=== PATIENT | male | born 1985 | race Caucasian/White ===

== ENCOUNTER 2017-09-21 16:33 | Emergency (ER) | payer SELFPAY ==
--- NOTE | 2017-09-21 17:10 | EDPHYS ---
Physician Documentation [facility] Name: Adi Raymond II Age: 32 yrs Sex: Male : 1985 Arrival Date: 09/21/2017 Time: 16:38 Bed 17 Private MD: None, None ED Physician Nolan Franco HPI: 09/21 17:01 This 32 yrs old Male presents to ER via Ambulatory with complaints of gs Numbness Of Hand. 17:01 The patient or guardian reports PARESTHESIA HANDS FOR MANY YEARS USUALLY WHEN WAKES UP gs IN AM, LAST WEEK NOTICED PROGRESSIVE NUMBNESS RIGHT MIDDLE FINGER, NEGATIVE FOR NECK PAIN. The complaints affect the left hand diffusely, right hand diffusely. Onset: The symptoms/episode began/occurred 1 week(s) ago. Modifying factors: The symptoms are alleviated by nothing, the symptoms are aggravated by nothing. Associated signs and symptoms: Pertinent positives: decreased sensation distally, tingling distally. Severity of symptoms: At their worst the symptoms were moderate, in the emergency department the symptoms are unchanged. The patient has experienced similar episodes in the past, multiple times. Historical: - Allergies: 16:48 No Known Allergies; ss - Home Meds: 16:48 None [Active]; ss - PMHx: 16:48 Hypertension; chronic back pain; ss - PSHx: 16:48 Adenoids; ss - Immunization history:: Adult Immunizations up to date. - Social history:: Smoking status: Patient/guardian denies using tobacco. - Ebola Screening: : Patient denies exposure to infectious person Patient denies travel to an Ebola-affected area in the 21 days before illness onset. ROS: 17:01 All other systems are negative. gs Exam: 17:01 Neck: Trachea midline, no thyromegaly or masses palpated, and no cervical gs lymphadenopathy. Supple, full range of motion without nuchal rigidity, or vertebral point tenderness. No Meningismus. Chest/axilla: Normal chest wall appearance and motion. Nontender with no deformity. No lesions are appreciated. Cardiovascular: Regular rate and rhythm with a normal S1 and S2. No gallops, murmurs, or rubs. Normal PMI, no JVD. No pulse deficits. Respiratory: Lungs have equal breath sounds bilaterally, clear to auscultation and percussion. No rales, rhonchi or wheezes noted. No increased work of breathing, no retractions or nasal flaring. Back: No spinal tenderness. No costovertebral tenderness. Full range of motion. Skin: Warm, dry with normal turgor. Normal color with no rashes, no lesions, and no evidence of cellulitis. 17:01 Constitutional: The patient appears alert, awake. 17:01 Musculoskeletal/extremity: ROM: intact in all extremities, Pulses: are normal with no appreciated deficits, the palmar aspect of distal phalanx of right middle finger, palmar aspect of distal phalanx of right index finger and palmar aspect of distal phalanx of right thumb Tingling of extremity. decreased sensation, + TINNELS ON RIGHT. 17:01 Neuro: Cranial nerves: grossly normal, Cerebellar function: is grossly normal, Motor: is normal, strength is normal, Sensation: pin prick is decreased in the palmar aspect of distal phalanx of right middle finger and palmar aspect of distal phalanx of right index finger, Deep tendon reflexes are normal. Vital Signs: 16:48 BP 162 / 107; Pulse 100; Resp 15; Temp 97.7(TE); Pulse Ox 96% on R/A; Weight 124.74 kg; ss Height 5 ft. 8 in. (172.72 cm); Pain 0/10; 17:38 BP 156 / 99; Pulse 98; Resp 17; Pulse Ox 99% on R/A; kr2 16:48 Body Mass Index 41.81 (124.74 kg, 172.72 cm) ss MDM: 17:01 Patient medically screened. gs 17:01 Differential diagnosis: CERVICAL RADICULOPATHY, CARPEL TUNNEL, NEUROPATHY. Data gs reviewed: vital signs, nurses notes. Response to treatment: There is no appreciated change of the patient's symptoms at this time, and as a result, I will discharge patient. 09/21 17:10 Order name: Wrist Splint: VELCRO RIGHT; Complete Time: 17:35 gs Administered Medications: No medications were administered Disposition: 09/21/17 17:09 Discharged to Home. Impression: Carpal tunnel syndrome, right upper limb, Paresthesia of skin. - Condition is Stable. - Discharge Instructions: Carpal Tunnel Syndrome, Wrist Splint, Paresthesia, [id number]. - Medication Reconciliation Form, Thank You Letter, Antibiotic Education, Prescription Opioid Use form. - Follow up: Morgan Ramos MD; When: 2 - 3 days; Reason: Re-evaluation by your physician. Signatures: Kylie Baker RN RN ss Nolan Franco MD MD Sima Bedolla RN RN kr2 Corrections: (The following items were deleted from the chart) 17:39 17:09 09/21/2017 17:09 Discharged to Home. Impression: Carpal tunnel syndrome, right kr2 upper limb; Paresthesia of skin. Condition is Stable. Forms are Medication Reconciliation Form, Thank You Letter, Antibiotic Education, Prescription Opioid Use. Follow up: Dr. Morgan Ramos; When: 2 - 3 days; Reason: Re-evaluation by your physician. gs
--- NOTE | 2017-09-21 17:10 | ER ---
Nurse's Notes [facility] Name: Adi Raymond II Age: 32 yrs Sex: Male : 1985 Arrival Date: 09/21/2017 Time: 16:38 Bed 17 Private MD: None, None Diagnosis: Carpal tunnel syndrome, right upper limb;Paresthesia of skin Presentation: 09/21 16:45 Presenting complaint: Patient states: intermittent numbness x "a few years" to ss bilateral hands, has gotten progressively worse throughout the last month. Transition of care: patient was not received from another setting of care. Onset of symptoms is unknown. Risk Assessment: Do you want to hurt yourself or someone else? Patient reports no desire to harm self or others. Initial Sepsis Screen: Does the patient meet any 2 criteria? No. Patient's initial sepsis screen is negative. Does the patient have a suspected source of infection? No. Patient's initial sepsis screen is negative. Note Pt states, "I had to come with my sister to the ER to bring my nephew to be seen and I figured while I was here i'd get it checked out.". Care prior to arrival: None. 16:45 Method Of Arrival: Ambulatory ss 16:45 Acuity: [id number] 5 ss Historical: - Allergies: 16:48 No Known Allergies; ss - Home Meds: 16:48 None [Active]; ss - PMHx: 16:48 Hypertension; chronic back pain; ss - PSHx: 16:48 Adenoids; ss - Immunization history:: Adult Immunizations up to date. - Social history:: Smoking status: Patient/guardian denies using tobacco. - Ebola Screening: : Patient denies exposure to infectious person Patient denies travel to an Ebola-affected area in the 21 days before illness onset. Screenin:37 Abuse screen: Denies threats or abuse. Denies injuries from another. Nutritional kr2 screening: No deficits noted. Tuberculosis screening: No symptoms or risk factors identified. Fall Risk None identified. Assessment: 16:49 Reassessment: Pt states, "I know my blood pressure has been high. I just haven't seen a doctor since I got out of [facility].". 17:36 General: Appears in no apparent distress. comfortable, well developed, well nourished, kr2 Behavior is calm, cooperative, appropriate for age. Pain: Denies pain. Neuro: Level of Consciousness is awake, alert, obeys commands, Oriented to person, place, time, situation, Appropriate for age. Neuro: Reports paresthesias in left hand and right hand and palmar aspect of distal phalanx of right thumb and palmar aspect of distal phalanx of right index finger and palmar aspect of distal phalanx of right middle finger. Cardiovascular: Capillary refill < 3 seconds in bilateral fingers Patient's skin is warm and dry. Respiratory: Airway is patent Respiratory effort is even, unlabored, Respiratory pattern is regular, symmetrical. GI: Abdomen is round non-distended. Derm: Skin is intact, is healthy with good turgor, Skin is pink, warm \\T\\ dry. Musculoskeletal: Circulation, motion, and sensation intact. Vital Signs: 16:48 BP 162 / 107; Pulse 100; Resp 15; Temp 97.7(TE); Pulse Ox 96% on R/A; Weight 124.74 kg; ss Height 5 ft. 8 in. (172.72 cm); Pain 0/10; 17:38 BP 156 / 99; Pulse 98; Resp 17; Pulse Ox 99% on R/A; kr2 16:48 Body Mass Index 41.81 (124.74 kg, 172.72 cm) ED Course: 16:38 Patient arrived in ED. sb2 16:38 None, None is Private Physician. sb2 16:40 Nolan Franco MD is Attending Physician. gs 16:47 Triage completed. ss 16:48 Arm band placed on left wrist. ss 16:52 Sima Bedolla, SOFY is Primary Nurse. kr2 17:09 Morgan Ramos MD is Referral Physician. gs 17:37 Patient has correct armband on for positive identification. Bed in low position. Call kr2 light in reach. Side rails up X 1. Pulse ox on. NIBP on. Door closed. Warm blanket given. Head of bed elevated. 17:38 No provider procedures requiring assistance completed. Patient did not have IV access kr2 during this emergency room visit. Administered Medications: No medications were administered Outcome: 17:09 Discharge ordered by . gs 17:38 Discharged to home ambulatory. kr2 17:38 Condition: good 17:38 Discharge instructions given to patient, Instructed on discharge instructions, follow up and referral plans. splint care Demonstrated understanding of instructions, follow-up care, splint care. 17:39 Patient left the ED. kr2 Signatures: Kylie Baker RN RN ss Nolan rFanco MD MD gs Reaves, Karey, RN RN kr2 Arina Alvarenga2
[2017-09-21 18:20] VITALS: TEMP 97.7
[2017-09-21 18:22] VITALS: BP 156/99; O2SAT 99
== END 2017-09-21 17:39 | disposition home or self-care (01) ==
LOC: ER 16:33
DX: G56.01 Carpal tunnel syndrome, right upper limb (principal); I10 Essential (primary) hypertension
CPT/HCPCS: 99283

== ENCOUNTER 2019-03-16 10:15 | Inpatient (IN) | payer SELFPAY ==
[2019-03-16] MEDS ORDERED: ONDANSETRON 4 MG/2 ML VIAL ONE ×3 (10:24→15:18)
[2019-03-16] MEDS ORDERED: MORPHINE 4 MG/ML SYR ONE (10:24)
[2019-03-16] MEDS ORDERED: NA CHLORIDE 0.9% 1,000 ML ONE (10:24)
--- NOTE | 2019-03-16 11:03 | RAD REPORT ---
EXAM DESCRIPTION: CT - Stone Protocol - 03/16/2019 10:37 am CLINICAL HISTORY: Abdominal pain. COMPARISON: None. TECHNIQUE: Computed axial tomography of the abdomen pelvis was obtained without oral or IV contrast. Lack of IV and oral contrast limits evaluation of solid organs, bowel, and vessels. Coronal reformat [place] images were obtained and reviewed. All CT scans are performed using dose optimization technique as appropriate and may include automated exposure control or mA/KV adjustment according to patient size. FINDINGS: A renal calculus is not seen. An ureteral calculus is not noted. A bladder calculus is not present. Multiple gallstones are present. The gallbladder is distended. Marked stranding is present within the adjacent fat. Stranding involves the duodenum The liver, spleen, pancreas and adrenals appear grossly normal There is no evidence of diverticulitis. The appendix appears normal Small inguinal hernias contain fat. Trace amount of free fluid IMPRESSION: Cholelithiasis with marked gallbladder wall thickening and gallbladder distention дмитрий tible with acute cholecystitis
[2019-03-16] MEDS ORDERED: METRONIDAZOLE 500mg IVPB 500 MG/100 ML BAG IV ONE (11:08)
[2019-03-16] MEDS ORDERED: CEFTRIAXONE/SWI 1gm 1 GM/10 ML SYR ONE (11:08)
[2019-03-16 11:10] LABS: ALT/SGPT 140 U/L (12-78); AST/SGOT 214 U/L (15-37); Albumin 3.5 g/dL (3.4-5.0); Alkaline Phosphatase 170 U/L (45-117); BUN Blood Urea Nitrogen 14 mg/dL (7-18); Bicarbonate 30 mmol/L (21-32); Bilirubin Direct 0.6 mg/dL (0-0.2); Bilirubin Total 1.3 mg/dL (0.2-1.0); Glucose Level 128 mg/dL (74-106); Lipase 107 U/L (73-393); Potassium 3.7 mmol/L (3.5-5.1); Protein, Total 7.7 g/dL (6.4-8.2); Sodium Level 137 mmol/L (136-145)
[2019-03-16] MEDS ORDERED: HYDROMORPHONE HCL 1 MG/ML INJ ONE (11:21)
[2019-03-16 11:30] LABS: Basophils % 0.3 % (0-1.3); Hematocrit 40.9 % (39.6-49.0); Lymphocytes % 7.6 % (15.3-44.8); MPV 8.2 fL (7.6-11.3); RBC Red Blood Cell Count 4.83 M/uL (4.33-5.43)
--- NOTE | 2019-03-16 11:33 | RAD REPORT ---
EXAM DESCRIPTION: US - Abdomen Exam Limited - 03/16/2019 10:51 am CLINICAL HISTORY: Abdominal pain. COMPARISON: None. FINDINGS: The gallbladder wall is markedly thickened. Multiple gallstones. The gallbladder is disten ded. The biliary tree is normal caliber. IMPRESSION: Cholelithiasis with markedly thickened gallbladder wall and gallbladder distention дмитрий tible with acute cholecystitis
--- NOTE | 2019-03-16 11:48 | RAD REPORT ---
EXAM DESCRIPTION: US - Scrotum Testicles - 03/16/2019 10:59 am CLINICAL HISTORY: Testicular pain COMPARISON: None FINDINGS: Right testicle measures 4.9 x 2.4 x 3.2 centimeters. Echotexture is homogeneous. Normal bl ood flow Left testicle measures 4.5 x 2.4 x 3.2 centimeters. Echotexture is homogeneous. Normal blood flow The epididymides are normal in size and echotexture. Normal blood flow is seen. Two right spermatoceles measuring 3 millimeters IMPRESSION: Two small right spermatoceles
--- NOTE | 2019-03-16 12:05 | EDPHYS ---
Physician Documentation [facility] Name: Adi Raymond II Age: 34 yrs Sex: Male : 1985 Arrival Date: 03/16/2019 Time: 10:16 Bed 8 Private MD: ED Physician Brandyn Flores HPI: 03/16 10:23 This 34 yrs old Male presents to ER via Wheelchair with complaints of rn Abdominal Pain. 10:23 The patient presents with abdominal pain in the right upper quadrant. Onset: The rn symptoms/episode began/occurred 3 day(s) ago. The symptoms radiate to pelvis. The symptoms are described as intermittent, sharp. Modifying factors: The symptoms are alleviated by nothing, the symptoms are aggravated by pressure, vomiting. Severity of pain: At its worst the pain was moderate in the emergency department the pain is unchanged. The patient has not experienced similar symptoms in the past. The patient has not recently seen a physician. Reports RUQ abd pain, radiates to right testicle, no fever, + nausea and vomiting, normal stool, able to urinate, no hematuria. No trauma. Denies drug use. Comes in waves. reports abd pain hurts and shoots to testicle, complains more of abd pain.. Historical: - Allergies: 10:17 No Known Allergies; sv - PMHx: 10:17 chronic back pain; Hypertension; sv - PSHx: 10:17 Adenoids; sv - Immunization history:: Adult Immunizations up to date. - Social history:: Smoking status: Patient/guardian denies using tobacco, Patient/guardian denies using alcohol. - Ebola Screening: : No symptoms or risks identified at this time. - Family history:: not pertinent. - Hospitalizations: : No recent hospitalization is reported. ROS: 10:23 Constitutional: Negative for fever, chills, and weight loss, Eyes: Negative for injury, rn pain, redness, and discharge, Neck: Negative for injury, pain, and swelling, Cardiovascular: Negative for chest pain, palpitations, and edema, Respiratory: Negative for shortness of breath, cough, wheezing, and pleuritic chest pain, Abdomen/GI: + abd pain, nausea/vomiting. : Negative for injury, bleeding, discharge, and swelling, + right testicular pain MS/Extremity: Negative for injury and deformity, Skin: Negative for injury, rash, and discoloration, Neuro: Negative for headache, weakness, numbness, tingling, and seizure. Exam: 10:23 Constitutional: This is a well developed, well nourished patient who is awake, alert, rn diaphoretic and appears uncomfortable Head/Face: Normocephalic, atraumatic. ENT: dry MM Cardiovascular: Regular rate and rhythm with a normal S1 and S2. No gallops, murmurs, or rubs. Normal PMI, no JVD. No pulse deficits. Respiratory: mild tachypnea,clear bilaterally Abdomen/GI: soft, + RUQ and RLQ tenderness, no rebound MS/ Extremity: Pulses equal, no cyanosis. Neurovascular intact. Full, normal range of motion. Equal circumference. Neuro: Awake and alert, GCS 15, oriented to person, place, time, and situation. Cranial nerves II-XII grossly intact. Motor strength 5/5 in all extremities. Sensory grossly intact. Vital Signs: 10:17 BP 175 / 106; Pulse 89; Resp 22; Temp 97.4; Pulse Ox 100% ; Weight 108.86 kg; Height 5 sv ft. 9 in. (175.26 cm); Pain 10/10; 11:16 BP 173 / 112; Pulse 86; Resp 22; Pulse Ox 100% ; sv 12:00 BP 156 / 92; Pulse 91; Resp 18; Pulse Ox 95% ; sv 12:48 BP 149 / 100; Pulse 84; Resp 16; Pulse Ox 95% ; sv 13:32 BP 147 / 99; Pulse 73; Resp 18; Pulse Ox 97% on R/A; aj1 10:17 Body Mass Index 35.44 (108.86 kg, 175.26 cm) sv MDM: 10:17 Patient medically screened. rn 12:03 Differential diagnosis: cholecystitis, Cholelithiasis. Data reviewed: vital signs, rn nurses notes, lab test result(s), radiologic studies, CT scan, ultrasound, and as a result, I will admit patient. Counseling: I had a detailed discussion with the patient and/or guardian regarding: the historical points, exam findings, and any diagnostic results supporting the discharge/admit diagnosis, lab results, radiology results, the need for further work-up and treatment in the hospital. Response to treatment: the patient's symptoms have markedly improved after treatment. Admission orders: after a detailed discussion of the patient's condition and case, the admit orders are written by me. ED course: Discussed case with Dr. Cottrell, will take to OR, abx given, pain improved.. 03/16 10:23 Order name: Basic Metabolic Panel; Complete Time: 11:23 rn 03/16 10:23 Order name: CBC with Diff; Complete Time: 11: rn 03/16 10:23 Order name: Creatinine for Radiology; Complete Time: : rn 03/16 10:23 Order name: Hepatic Function; Complete Time: 11: rn 03/16 10:23 Order name: Lipase; Complete Time: 11: rn 03/16 10:23 Order name: CT Stone Protocol; Complete Time: : rn 03/16 10:23 Order name: US Abdomen Limited; Complete Time: : rn 03/16 10:23 Order name: US Scrotum Testicles; Complete Time: 12:04 rn 03/16 10:23 Order name: IV Saline Lock; Complete Time: 10: rn 03/16 10:23 Order name: Labs collected and sent; Complete Time: 10:31 rn Administered Medications: 10:25 Drug: Zofran 4 mg Route: IVP; Site: right antecubital; sv 11:15 Follow up: Response: No adverse reaction sv 10:25 Drug: NS 0.9% 1000 ml Route: IV; Rate: 1000 ml; Site: right antecubital; sv 11:30 Follow up: Response: No adverse reaction; IV Status: Completed infusion; IV Intake: sv 1000ml 10:27 Drug: morphine 4 mg {Note: rass2.} Route: IVP; Site: right antecubital; sv 11:14 Follow up: Response: No adverse reaction; No change in condition; RASS: Restless (+1) sv 11:10 Drug: Rocephin 1 grams Route: IV; Rate: calculated rate; Infused Over: 3 mins; Site: sv right antecubital; 11:13 Follow up: Response: No adverse reaction; IV Status: Completed infusion; IV Intake: 10mlsv 11:14 Drug: Flagyl 500 mg Volume: 100 ml; Route: IVPB; Rate: 200 ml/hr; Infused Over: 30 sv mins; Site: right antecubital; 12:15 Follow up: Response: No adverse reaction; IV Status: Completed infusion; IV Intake: sv 100ml 11:24 Drug: Dilaudid 1 mg {Note: rass3.} Route: IVP; Site: right antecubital; sv 12:00 Follow up: Response: No adverse reaction; Marked relief of symptoms; Pain is decreased; sv RASS: Light sedation (-2) 13:33 Drug: D5-NS 1000 ml Route: IV; Rate: 125 ml/hr; Site: right antecubital; aj1 Disposition: 03/16/19 12:04 Hospitalization ordered by Jaime Cottrell for Inpatient Admission. Preliminary diagnosis is Cholecystitis, unspecified. - Bed requested for Telemetry/MedSurg (Inpatient). - Status is Inpatient Admission. sv - Condition is Stable. - Problem is new. - Symptoms have improved. UTI on Admission? No Signatures: Dispatcher [employer] EDMS Yoly Francisco RN RN aj1 Olamide Pierre RN RN sv Brandyn Flores MD MD rn lpn lvn: (The following items were deleted from the chart) 10:25 10:23 Constitutional: Negative for fever, chills, and weight loss, Eyes: Negative for rn injury, pain, redness, and discharge, Neck: Negative for injury, pain, and swelling, Cardiovascular: Negative for chest pain, palpitations, and edema, Respiratory: Negative for shortness of breath, cough, wheezing, and pleuritic chest pain, Abdomen/GI: + abd pain, nausea/vomiting. MS/Extremity: Negative for injury and deformity, Skin: Negative for injury, rash, and discoloration, Neuro: Negative for headache, weakness, numbness, tingling, and seizure, rn 14:06 12:04 Hospitalization Ordered by Jaime Cottrell MD for Inpatient Admission. Preliminary sv diagnosis is Cholecystitis, unspecified. Bed requested for Telemetry/MedSurg (Inpatient). Status is Inpatient Admission. Condition is Stable. Problem is new. Symptoms have improved. UTI on Admission? No. rn
--- NOTE | 2019-03-16 12:05 | ER ---
Nurse's Notes [facility] Name: Adi Raymond II Age: 34 yrs Sex: Male : 1985 Arrival Date: 03/16/2019 Time: 10:16 Bed 8 Private MD: Diagnosis: Cholecystitis, unspecified Presentation: 03/16 10:16 Transition of care: patient was not received from another setting of care. Onset of sv symptoms was March 14, 2019. Risk Assessment: Do you want to hurt yourself or someone else? Patient reports no desire to harm self or others. Care prior to arrival: None. 10:16 Acuity: SANJEEV 2 sv 10:16 Presenting complaint: Patient states: RLQ pain radiating to right testicle x 2 days aa5 ago. Pt reports nausea and vomiting. Denies diarrhea. 10:17 Method Of Arrival: Wheelchair aa5 10:18 Initial Sepsis Screen: Does the patient meet any 2 criteria? RR > 20 per min. No. sv Patient's initial sepsis screen is negative. Does the patient have a suspected source of infection? No. Patient's initial sepsis screen is negative. Triage Assessment: 10:16 General: Appears distressed, uncomfortable, well developed, Behavior is cooperative, sv appropriate for age, crying. Pain: Complains of pain in right lower quadrant Pain radiates to right testicle Pain currently is 10 out of 10 on a pain scale. Quality of pain is described as sharp, stabbing, Pain began 2-3 days ago. Is continuous, Noted to be crying. Neuro: Level of Consciousness is awake, alert, obeys commands, Oriented to person, place, time, situation, Moves all extremities. Full function Gait is steady. Respiratory: Respiratory effort is even, unlabored, Respiratory pattern is symmetrical, tachypnea. GI: Abdomen is round Last meal was March 16, 2019. at 01:00. Reports lower abdominal pain. Derm: Skin is pink, warm \T\ dry. Historical: - Allergies: 10:17 No Known Allergies; sv - PMHx: 10:17 chronic back pain; Hypertension; sv - PSHx: 10:17 Adenoids; sv - Immunization history:: Adult Immunizations up to date. - Social history:: Smoking status: Patient/guardian denies using tobacco, Patient/guardian denies using alcohol. - Ebola Screening: : No symptoms or risks identified at this time. - Family history:: not pertinent. - Hospitalizations: : No recent hospitalization is reported. Screenin:18 Abuse screen: Denies threats or abuse. Denies injuries from another. Nutritional sv screening: No deficits noted. Tuberculosis screening: No symptoms or risk factors identified. Fall Risk None identified. Assessment: 10:25 Reassessment: Patient appears in no apparent distress at this time. No changes from sv previously documented assessment. Patient and/or family updated on plan of care and expected duration. Pain level reassessed. Patient is alert, oriented x 3, equal unlabored respirations, skin warm/dry/pink. 11:20 Reassessment: Patient appears in no apparent distress at this time. No changes from sv previously documented assessment. Patient and/or family updated on plan of care and expected duration. Pain level reassessed. Patient is alert, oriented x 3, equal unlabored respirations, skin warm/dry/pink. General: Behavior is crying, Informed Dr Flores pt is still in pain, medication order received.. Pain: Complains of pain in right lower quadrant Pain currently is 10 out of 10 on a pain scale. 12:45 Reassessment: Patient appears in no apparent distress at this time. Patient and/or sv family updated on plan of care and expected duration. Pain level reassessed. Pt appears to be resting with eyes closed. Will continue to monitor. 13:33 Reassessment: Patient and/or family updated on plan of care and expected duration. Pain aj1 level reassessed. General: Appears in no apparent distress. comfortable, Behavior is calm, cooperative, appropriate for age. Pain: Denies pain. Neuro: Patient is resting comfortably with eyes closed, awakens easily to verbal stimuli. Cardiovascular: Patient's skin is warm and dry. Respiratory: Airway is patent Respiratory effort is even, unlabored, Respiratory pattern is regular, symmetrical. GI: Abdomen is distended, Bowel sounds present X 4 quads. Abd is soft X 4 quads. : No signs and/or symptoms were reported regarding the genitourinary system. EENT: No signs and/or symptoms were reported regarding the EENT system. Derm: No signs and/or symptoms reported regarding the dermatologic system. Skin is pink, warm \T\ dry. normal. Musculoskeletal: No signs and/or symptoms reported regarding the musculoskeletal system. Circulation, motion, and sensation intact. Vital Signs: 10:17 BP 175 / 106; Pulse 89; Resp 22; Temp 97.4; Pulse Ox 100% ; Weight 108.86 kg; Height 5 sv ft. 9 in. (175.26 cm); Pain 10/10; 11:16 BP 173 / 112; Pulse 86; Resp 22; Pulse Ox 100% ; sv 12:00 BP 156 / 92; Pulse 91; Resp 18; Pulse Ox 95% ; sv 12:48 BP 149 / 100; Pulse 84; Resp 16; Pulse Ox 95% ; sv 13:32 BP 147 / 99; Pulse 73; Resp 18; Pulse Ox 97% on R/A; aj1 10:17 Body Mass Index 35.44 (108.86 kg, 175.26 cm) sv ED Course: 10:16 Patient arrived in ED. aa5 10:16 Olamide Pierre RN is Primary Nurse. sv 10:17 Triage completed. sv 10:17 Brandyn Flores MD is Attending Physician. rn 10:17 Arm band placed on. sv 10:17 Patient placed in an exam room, on a stretcher. sv 10:18 ED physician to see patient. sv 10:18 Patient has correct armband on for positive identification. Placed in gown. Bed in low sv position. Call light in reach. Pulse ox on. NIBP on. Door closed. Head of bed elevated. 10:31 Basic Metabolic Panel Sent. sv 10:31 CBC with Diff Sent. sv 10:31 Creatinine for Radiology Sent. sv 10:31 Hepatic Function Sent. sv 10:31 Lipase Sent. sv 10:36 CT completed. Patient tolerated procedure well. Patient moved to CT via wheelchair. Patient moved back from CT. 10:38 CT Stone Protocol In Process Unspecified. EDMS 10:54 US Abdomen Limited In Process Unspecified. EDMS 10:54 US Scrotum Testicles In Process Unspecified. EDMS 11:24 Awaiting radiology results. sv 12:04 Jaime Cottrell MD is Hospitalizing Provider. rn 12:25 Awaiting bed assignment. sv 12:55 Report given to Yoly GOETZ. sv 14:06 No provider procedures requiring assistance completed. Patient admitted, IV remains in sv place. intact. Administered Medications: 10:25 Drug: Zofran 4 mg Route: IVP; Site: right antecubital; sv 11:15 Follow up: Response: No adverse reaction sv 10:25 Drug: NS 0.9% 1000 ml Route: IV; Rate: 1000 ml; Site: right antecubital; sv 11:30 Follow up: Response: No adverse reaction; IV Status: Completed infusion; IV Intake: sv 1000ml 10:27 Drug: morphine 4 mg {Note: rass2.} Route: IVP; Site: right antecubital; sv 11:14 Follow up: Response: No adverse reaction; No change in condition; RASS: Restless (+1) sv 11:10 Drug: Rocephin 1 grams Route: IV; Rate: calculated rate; Infused Over: 3 mins; Site: sv right antecubital; 11:13 Follow up: Response: No adverse reaction; IV Status: Completed infusion; IV Intake: 10mlsv 11:14 Drug: Flagyl 500 mg Volume: 100 ml; Route: IVPB; Rate: 200 ml/hr; Infused Over: 30 sv mins; Site: right antecubital; 12:15 Follow up: Response: No adverse reaction; IV Status: Completed infusion; IV Intake: sv 100ml 11:24 Drug: Dilaudid 1 mg {Note: rass3.} Route: IVP; Site: right antecubital; sv 12:00 Follow up: Response: No adverse reaction; Marked relief of symptoms; Pain is decreased; sv RASS: Light sedation (-2) 13:33 Drug: D5-NS 1000 ml Route: IV; Rate: 125 ml/hr; Site: right antecubital; aj1 Intake: 11:13 IV: 10ml; Total: 10ml. sv 11:30 IV: 1000ml; Total: 1010ml. sv 12:15 IV: 100ml; Total: 1110ml. sv Outcome: 12:04 Decision to Hospitalize by Provider. rn 14:06 Patient left the ED. sv 14:06 Admitted to OR accompanied by nurse, with chart. sv 14:06 Condition: stable 14:06 Instructed on the need for admit. Signatures: Dispatcher [employer] EDMS Yoly Francisco RN RN aj1 Olamide Pierre RN RN sv Brandyn Flores MD MD rn Calderon, Audri, RN RN aa5 Dang Pavon
[2019-03-16] MEDS ORDERED: D5 0.45 NS 1,000 ML IV ONE (13:29)
[2019-03-16] MEDS ORDERED: PROPOFOL 200 MG/20 ML VIAL IV ONE (14:12)
[2019-03-16] MEDS ORDERED: ROCURONIUM 50 MG/5 ML VIAL IV ONE ×2 (14:13→15:59)
[2019-03-16] MEDS ORDERED: LIDOCAINE 2% MPF 5 ML VIAL ONE (14:13)
[2019-03-16] MEDS ORDERED: Ringers Lactate 1,000 ML IV ONE ×2 (14:22→15:54)
[2019-03-16] MEDS ORDERED: ONDANSETRON 4 MG/2 ML VIAL IV PRN (14:27)
[2019-03-16] MEDS ORDERED: MORPHINE 4 MG/ML SYR IV PRN (14:27)
[2019-03-16] MEDS ORDERED: D5 0.45 NS 1,000 ML IV SCH (14:27)
[2019-03-16] MEDS ORDERED: FENTANYL CITR 100 MCG/2 ML ONE ×4 (14:32→16:35)
[2019-03-16] MEDS ORDERED: MIDAZOLAM HCL 2 MG/2 ML INJ ONE (14:32)
--- NOTE | 2019-03-16 14:40 | P.HP ---
Date of Service: 03/16/19 PC: This 34-year-old male presented to the emergency room with severe right- sided abdominal pain for diagnosis and treatment. HPC: Patient states that the pains been mainly on his right side, radiates down into his testicles. Causing increasing pain and discomfort. Has had pain like this off and on for the last 5 years. PMH: Negative PSHx: Denies any prior history SOC: No known allergies SYS REVIEW: No cough, wheeze, shortness of breath. No chest pain or palpitations. No urinary complaints O/E awake alert vital signs are stable HEENT: Not jaundiced Chest: Chest movement equal bilaterally ABD: Soft, no guarding or rebound LOCO: Intact DATA: Elevated white cell count, CT scan shows cholecystitis with cholelithiasis IMPRESSION: Acute cholecystitis with cholelithiasis PLAN: I will take him the operating room for laparoscopic possible open cholecystectomy with cholangiogram. The risks of this procedure have been discussed. The possibility of bleeding, infection, injury to 2 bile ducts blood vessels intestines has been described. The possible need for an open and/ or further surgeries and procedures was discussed. He understands and wants us to proceed.
[2019-03-16] MEDS ORDERED: KETOROLAC 30 MG/ML INJ ONE (15:18)
[2019-03-16] MEDS ORDERED: GLYCOPYRROLATE 0.2 MG/ML SYR ONE (15:19)
[2019-03-16] MEDS ORDERED: NEOSTIGMINE 1 MG/ML -10 ML VIAL ONE (15:19)
--- NOTE | 2019-03-16 17:38 | P.OP ---
Preoperative diagnosis: Acute on chronic cholecystitis with cholelithiasis Postoperative diagnosis: The same with hydrops of the gallbladder Primary procedure: Laparoscopic cholecystectomy converted to open procedure Anesthesia: General Estimated blood loss: Less than 500 cc Specimen: 1 gallbladder and contents Operative Technique: The patient was brought to the operating room and placed supine on the table. After the induction of adequate general endotracheal anesthesia, the area of the abdomen was prepped with a DuraPrep solution, and he was draped in usual aseptic manner. A subumbilical incision was made. This brought down through the skin and subcutaneous tissue. The Visiport was used to enter the peritoneal cavity and created pneumoperitoneum to approximately 12 mm of mercury. Under direct vision a 5 mm trocar was placed in the upper midline, and 2 other 5 mm trocars on the right lateral side of the abdomen. The patient was now placed in reverse Trendelenburg and rolled to the left. We could visualize right upper quadrant. We could see an intense inflammatory response just at the inferior edge of the liver. The omentum was obviously adherent to a very distended gallbladder. There was an acute component to this with the omentum being very markedly inflamed. This was gently dissected off of the gallbladder itself. It was necessary to drain the gallbladder so that we could place graspers on its serosal surface. The bile that we obtained was clear. The patient therefore had a hydrops. There was a peel over the gallbladder from previous attacks. We were able to remove most of this until we got down to Cora's pouch. At this point we could not adequately separate the gallbladder, cystic duct, and artery out with could visualize station. Because of this we converted to an open procedure. After having gently palpated the abdominal wall to ensure optimal position of our incision a skin cut was made. This brought down through the skin and subcutaneous tissue. The fascia over the rectus muscle was opened and extended out laterally. The rectus muscle was now divided. The posterior sheath was grasped between hemostats and sharply incised to allow access to the peritoneal cavity. The bowel for retractor was now put in place. We were able to start our initial dissection of the gallbladder in a retrograde manner. The gallbladder was gently dissected off of the liver. This was very friable in this area and with some brisk bleeding being in countered. Irrigation and use the Bovie lattice to ensure adequate hemostasis. The Cora's pouch having been artery identified we were able to sweep in an separate the cystic duct and artery under direct vision. A 2 0 tie was now placed on the cystic duct. A 2nd 1 of silk was also position. We had intended on doing a intraoperative cholangiogram , 2 to the inflammatory nature in the area and then if thin friability of the cystic duct. This portion of the procedure was abandoned. The cystic duct was now divided. The cystic artery was dealt with in a similar fashion as well as using surgical clips. The gallbladder was now detached and sent for histopathology. It was obviously full of stones. At this point the liver bed was inspected of the area was done until clear. Selective use electric cautery allowed us to ensure adequate hemostasis of this area. An 10 mm drain drain was now placed in the Morison's pouch, brought out through our lateral trocar opening. The omentum was put back up into the right upper quadrant. The posterior sheath was now closed with a running suture of 2 0 PDS. The anterior was dealt with in a similar fashion. The skin was approximated with rudy. At this point the patient was in a stable condition when sent to the recovery room. Needle sponge instrument count were correct. Complications: None Drain(s): LIANNA drain Transferred to: Recovery Room Condition: Good
[2019-03-16] MEDS ORDERED: CEFOXITIN 1 GM in NA CHLORIDE 0.9% 100 ML IVPB SCH (18:00)
[2019-03-16] MEDS: Ringers Lactate 1,000 ML IV SCH ×2 (18:00→21:59)
[2019-03-16] MEDS: CEFOXITIN/SWI 1gm 1 GM/10 ML SYR IVP SCH (18:16)
--- NOTE | 2019-03-16 20:30 | P.PN ---
Date of Service: 03/16/19 Has a S: Patient feels much better this evening, no specific complaints. Asking when he can eat. O: Vital signs are stable, minimal out through LIANNA drain. Discuss with him our surgical findings. A: Surgically stable P: Continue monitor vitals, will check his hemoglobin hematocrit as well liver function tests in a.m.. Will advance his diet in the morning and ensure that his pain is controlled. Anticipate discharge soon.
[2019-03-16] MEDS: MORPHINE 4 MG/ML SYR IV PRN (20:54)
[2019-03-17 01:29] VITALS: BMI 35.0
[2019-03-17] MEDS: CEFOXITIN/SWI 1gm 1 GM/10 ML SYR IVP SCH ×4 (05:05→17:36)
[2019-03-17 06:01] LABS: Absolute Lymphocytes (CBC) 0.8 K/uL (0.7-4.9); Basophils % 0.6 % (0-1.3); Hematocrit 36.8 % (39.6-49.0); Lymphocytes % 10.7 % (15.3-44.8); MPV 7.7 fL (7.6-11.3); RBC Red Blood Cell Count 4.32 M/uL (4.33-5.43)
[2019-03-17 06:14] LABS: Albumin 2.7 g/dL (3.4-5.0); Bilirubin Direct 3.9 mg/dL (0-0.2); Potassium 3.7 mmol/L (3.5-5.1)
[2019-03-17] MEDS: HYDROCODONE/APAP 7.5/325 MG TAB PO PRN ×3 (06:53→17:40)
[2019-03-17] MEDS: Ringers Lactate 1,000 ML IV SCH ×2 (09:16→17:38)
[2019-03-17] MEDS: MORPHINE 4 MG/ML SYR IV PRN (14:49)
[2019-03-18] MEDS: CEFOXITIN/SWI 1gm 1 GM/10 ML SYR IVP SCH ×5 (00:09→23:32)
[2019-03-18] MEDS: Ringers Lactate 1,000 ML IV SCH ×4 (04:11→23:31)
[2019-03-18] MEDS: HYDROCODONE/APAP 7.5/325 MG TAB PO PRN ×2 (09:34→14:28)
[2019-03-18 09:37] LABS: Absolute Lymphocytes (CBC) 0.7 K/uL (0.7-4.9); Basophils % 0.6 % (0-1.3); Hematocrit 36.4 % (39.6-49.0); Lymphocytes % 9.7 % (15.3-44.8); MPV 7.6 fL (7.6-11.3); RBC Red Blood Cell Count 4.27 M/uL (4.33-5.43)
[2019-03-18 09:39] LABS: ALT/SGPT 299 U/L (12-78); AST/SGOT 162 U/L (15-37); Albumin 2.7 g/dL (3.4-5.0); Alkaline Phosphatase 392 U/L (45-117); BUN Blood Urea Nitrogen 8 mg/dL (7-18); Bicarbonate 31 mmol/L (21-32); Glucose Level 127 mg/dL (74-106); Lipase 74 U/L (73-393); Potassium 3.7 mmol/L (3.5-5.1); Protein, Total 6.3 g/dL (6.4-8.2); Sodium Level 136 mmol/L (136-145)
[2019-03-18 09:44] LABS: Bilirubin Total 6.5 mg/dL (0.2-1.0)
--- NOTE | 2019-03-18 16:04 | RAD REPORT ---
EXAM DESCRIPTION: [id number]/12/2019 3:49 pm CLINICAL HISTORY: Abdominal pain/elevated bilirubin COMPARISON: Six March 16, 2019 cat scan TECHNIQUE: Magnetic resonance cholangiogram was performed.3D MIP reconstruction performed FINDINGS: Cholecystectomy. The biliary tree is normal caliber without a filling defect. Pancreatic duct is normal caliber IMPRESSION: Cholecystectomy. No abnormality of the biliary tree noted
--- NOTE | 2019-03-18 17:43 | P.PN ---
Date of Service: 03/18/19 S: Patient feels a whole lot better today he states. Sitting up in bed, eating , pain is being controlled with hydrocodone. Says it does not quite last some long enough but appears to be working O: Vital signs are stable, incisions clean, labs show elevated bili Yusuf gone up since yesterday liver enzymes the pH to be resolving. Sanguinous drainage from the LIANNA drain nonbilious. A: I was concerned in view of the rising liver enzymes as to whether this patient may benefit from an ERCP. There is no GI manager of applications development. An MRCP at this time shows no dilatation of the about extrahepatic biliary tree or any filling defects noted. P: Continue current therapy, patient is on antibiotics, will repeat lab work in the morning. Patient may require transfer if the ERCP is indicated.
[2019-03-18] MEDS: HYDROCODONE/APAP 10/325 TAB PO PRN (20:25)
[2019-03-18 21:27] VITALS: O2SAT 93
[2019-03-19] MEDS: HYDROCODONE/APAP 10/325 TAB PO PRN ×2 (04:04→09:35)
[2019-03-19] MEDS: Ringers Lactate 1,000 ML IV SCH ×2 (05:13→09:36)
[2019-03-19] MEDS: CEFOXITIN/SWI 1gm 1 GM/10 ML SYR IVP SCH ×2 (05:14→11:14)
[2019-03-19 06:04] LABS: Absolute Lymphocytes (CBC) 1.1 K/uL (0.7-4.9); Basophils % 0.7 % (0-1.3); Hematocrit 34.9 % (39.6-49.0); Lymphocytes % 13.3 % (15.3-44.8); MPV 7.7 fL (7.6-11.3); RBC Red Blood Cell Count 4.07 M/uL (4.33-5.43)
[2019-03-19 06:05] LABS: ALT/SGPT 219 U/L (12-78); AST/SGOT 98 U/L (15-37); Albumin 2.5 g/dL (3.4-5.0); Alkaline Phosphatase 380 U/L (45-117); BUN Blood Urea Nitrogen 8 mg/dL (7-18); Bicarbonate 30 mmol/L (21-32); Bilirubin Total 1.7 mg/dL (0.2-1.0); Glucose Level 99 mg/dL (74-106); Lipase 76 U/L (73-393); Potassium 3.7 mmol/L (3.5-5.1); Protein, Total 6.1 g/dL (6.4-8.2); Sodium Level 139 mmol/L (136-145)
[2019-03-19 12:33] VITALS: BP 137/69; TEMP 98.2
--- NOTE | 2019-03-19 12:44 | P.PN ---
Date of Service: 03/19/19 S: Patient doing much better today, tolerating a regular diet, pain is well controlled on oral medication. O: Vital signs remain stable, still has some output from LIANNA drain, it is bloody , not bile stained A: The patient's liver enzymes have returned to normal. He remains afebrile. Clinically looks very well a diet his pain is controlled. P: I will discharge him home. He knows how to empty his drain. He will see me on Friday for drain removal. He will be sent on oral pain medications, as well as an oral antibiotic. Should any questions or problems he will return to the emergency room, or contact me.
== END 2019-03-19 14:09 | disposition home or self-care (01) | DRG 415 ==
LOC: ER 10:15 → ERHOLD 12:05 → 2ND 16:30
PROVIDERS: ADMIT Surgery; ATTEND Surgery
PROC: 0FJ44ZZ Inspection of Gallbladder, Percutaneous Endoscopic Approach (ICD-10-PCS; 2019-03-16)
PROC: 0FT40ZZ Resection of Gallbladder, Open Approach (ICD-10-PCS; principal; 2019-03-16 15:00)
DX: K80.12 Calculus of gallbladder with acute and chronic cholecystitis without obstruction (principal); K82.1 Hydrops of gallbladder; E66.9 Obesity, unspecified; Z68.35 Body mass index [BMI] 35.0-35.9, adult
CPT/HCPCS: 36415; 74176; 74181; 76377; 76705; 76870; 80048; 80053; 80076; 83690; 85025; 88304; 96361; 96365; 96375; 99285; J0696; J1170; J2250; J2405; J2704; J2710; J3010; J7030; J7120; J7799

== ENCOUNTER 2019-04-05 10:13 | Emergency (ER) | payer SELFPAY ==
--- NOTE | 2019-04-05 11:35 | ER ---
Nurse's Notes [facility] Name: Adi Raymond II Age: 34 yrs Sex: Male : 1985 Arrival Date: 04/05/2019 Time: 10:15 Bed 16 Private MD: Diagnosis: Encounter for removal of sutures;Acute upper respiratory infection, unspecified Presentation: 04/05 10:20 Presenting complaint: Patient states: took my gall bladder out, then I was sg in nursing home and they didn't give me any treatment, I think I need my surgery spot looked at, there is swelling and pain, also have pain all over might be the flu. Transition of care: patient was not received from another setting of care. Onset of symptoms was April 05, 2019. Risk Assessment: Do you want to hurt yourself or someone else? Patient reports no desire to harm self or others. Initial Sepsis Screen: Does the patient meet any 2 criteria? HR > 90 bpm. Does the patient have a suspected source of infection? Yes: Skin breakdown/wound. Care prior to arrival: None. 10:20 Method Of Arrival: Ambulatory sg 10:20 Acuity: SANJEEV 3 sg 10:30 Note removed his drainage tube himself on 03/23/19 due to inability to get in with the sg surgeon. Triage Assessment: 10:20 General: Appears in no apparent distress. well groomed, well developed, well nourished, sg Behavior is calm, cooperative, appropriate for age. Derm: paul appear clean and dry, no drainage noted at this time. Historical: - Allergies: 10:19 No Known Allergies; sg - PMHx: 10:19 chronic back pain; Hypertension; sg - PSHx: 10:19 Adenoids; sg - Immunization history:: Adult Immunizations up to date. - Social history:: Smoking status: Patient uses tobacco products. - Ebola Screening: : Patient negative for fever greater than or equal to 101.5 degrees Fahrenheit, and additional compatible Ebola Virus Disease symptoms Patient denies exposure to infectious person Patient denies travel to an Ebola-affected area in the 21 days before illness onset No symptoms or risks identified at this time. Screenin:40 Abuse screen: Denies threats or abuse. Denies injuries from another. Nutritional ca1 screening: No deficits noted. Tuberculosis screening: No symptoms or risk factors identified. Fall Risk None identified. Assessment: 10:40 General: Appears in no apparent distress. comfortable, Behavior is calm, cooperative, ca1 appropriate for age. Pain: Complains of pain in all over Pain currently is 8 out of 10 on a pain scale. Pain began 2-3 days ago. Neuro: Level of Consciousness is awake, alert, obeys commands, Oriented to person, place, time, situation, Appropriate for age. Cardiovascular: Heart tones S1 S2 present Capillary refill < 3 seconds Patient's skin is warm and dry. Respiratory: Reports cough that is productive, since 5 days Airway is patent Respiratory effort is even, unlabored, Respiratory pattern is regular, symmetrical, Breath sounds are clear bilaterally. GI: Abdomen is round non-distended, Paul on RUQ, umbilical area. Appears dry, intact and no drainage noted. Reports pinkish drainage from surgical incision in the past few days. Bowel sounds present X 4 quads. Abd is soft and non tender X 4 quads. Reports vomiting, yesterday. : No deficits noted. No signs and/or symptoms were reported regarding the genitourinary system. EENT: No deficits noted. No signs and/or symptoms were reported regarding the EENT system. Derm: Skin is intact, is healthy with good turgor, Skin is pink, warm \T\ dry. Musculoskeletal: Circulation, motion, and sensation intact. Capillary refill < 3 seconds, Range of motion: intact in all extremities. 11:01 Reassessment: Dr. Reno at bedside removing the staple from surgical incision. ca1 11:51 Reassessment: Patient appears in no apparent distress at this time. Patient is alert, ca1 oriented x 3, equal unlabored respirations, skin warm/dry/pink. Vital Signs: 10:36 BP 145 / 77; Pulse 106; Resp 18; Temp 97.6; Pulse Ox 99% on R/A; Weight 111.13 kg; sg Height 5 ft. 9 in. (175.26 cm); Pain 3/10; 11:51 BP 132 / 95; Pulse 99; Resp 17 S; Pulse Ox 99% on R/A; ca1 10:36 Body Mass Index 36.18 (111.13 kg, 175.26 cm) ED Course: 10:15 Patient arrived in ED. mr 10:18 Aleksandr Reno MD is Attending Physician. faby 10:19 Arm band placed on. sg 10:22 Triage completed. sg 10:31 Estela Singh, SOFY is Primary Nurse. ca1 10:40 Patient has correct armband on for positive identification. Bed in low position. Call ca1 light in reach. Side rails up X 1. Pulse ox on. NIBP on. Warm blanket given. 11:01 Flu and/or RSV swab sent to lab. Strep swab sent to lab. Removal of Patient tolerated mh5 well. 11:02 Flu Sent. ca1 11:02 Strep Sent. ca1 11:34 Jaime Cottrell MD is Referral Physician. faby 11:51 No provider procedures requiring assistance completed. Patient did not have IV access ca1 during this emergency room visit. Administered Medications: 11:50 Drug: Zithromax 500 mg Route: PO; ca1 11:50 Follow up: Response: Medication administered at discharge. ca1 Outcome: 11:34 Discharge ordered by MD. faby 11:51 Discharged to home ambulatory. ca1 11:51 Condition: stable 11:51 Discharge instructions given to patient, Instructed on discharge instructions, follow up and referral plans. medication usage, Demonstrated understanding of instructions, follow-up care, medications, Prescriptions given X 1. 11:51 Patient left the ED. ca1 Signatures: Jonas Geller RN RN Aleksandr Bain MD MD cha [facility]ilian [facility] Estela Singh, RN RN ca1 Corrections: (The following items were deleted from the chart) 10:49 10:40 GI: Abdomen is round non-distended, Paul on RUQ, umbilical area. Appears dry, ca1 intact and no drainage noted. Bowel sounds present X 4 quads. Abd is soft and non tender X 4 quads. ca1
--- NOTE | 2019-04-05 11:35 | EDPHYS ---
Physician Documentation [facility] Name: Adi Raymond II Age: 34 yrs Sex: Male : 1985 Arrival Date: 04/05/2019 Time: 10:15 Bed 16 Private MD: TORRI Physician Aleksandr Reno HPI: 04/05 11:02 This 34 yrs old Male presents to ER via Ambulatory with complaints of Suture faby Removal, Flu Symptoms. 11:02 This 34 yrs old Male presents to ER via Ambulatory with complaints of Suture faby Removal, Flu Symptoms. 11:02 The patient has paul on the abdomen. Previous treatment: The patient was initially faby treated on March 12, 2019. Sutures/paul progress: The patient has no c/o's. The wound is well-healing with no redness, swelling, discharge, or dehiscence reported. The patient has not experienced similar symptoms in the past. Historical: - Allergies: 10:19 No Known Allergies; sg - PMHx: 10:19 chronic back pain; Hypertension; sg - PSHx: 10:19 Adenoids; sg - Immunization history:: Adult Immunizations up to date. - Social history:: Smoking status: Patient uses tobacco products. - Ebola Screening: : Patient negative for fever greater than or equal to 101.5 degrees Fahrenheit, and additional compatible Ebola Virus Disease symptoms Patient denies exposure to infectious person Patient denies travel to an Ebola-affected area in the 21 days before illness onset No symptoms or risks identified at this time. ROS: 11:03 Constitutional: Negative for fever, chills, and weight loss, Eyes: Negative for injury, faby pain, redness, and discharge, ENT: Negative for injury, pain, and discharge, Neck: Negative for injury, pain, and swelling, Cardiovascular: Negative for chest pain, palpitations, and edema, Abdomen/GI: Negative for abdominal pain, nausea, vomiting, diarrhea, and constipation, Back: Negative for injury and pain, : Negative for injury, bleeding, discharge, and swelling, MS/Extremity: Negative for injury and deformity, Skin: Negative for injury, rash, and discoloration, Neuro: Negative for headache, weakness, numbness, tingling, and seizure, Psych: Negative for depression, anxiety, suicide ideation, homicidal ideation, and hallucinations, Allergy/Immunology: Negative for hives, rash, and allergies, Endocrine: Negative for neck swelling, polydipsia, polyuria, polyphagia, and marked weight changes, Hematologic/Lymphatic: Negative for swollen nodes, abnormal bleeding, and unusual bruising. 11:03 Respiratory: Positive for cough, "sounds productive". Exam: 11:03 Constitutional: This is a well developed, well nourished patient who is awake, alert, faby and in no acute distress. Head/Face: Normocephalic, atraumatic. Eyes: Pupils equal round and reactive to light, extra-ocular motions intact. Lids and lashes normal. Conjunctiva and sclera are non-icteric and not injected. Cornea within normal limits. Periorbital areas with no swelling, redness, or edema. ENT: Nares patent. No nasal discharge, no septal abnormalities noted. Tympanic membranes are normal and external auditory canals are clear. Oropharynx with no redness, swelling, or masses, exudates, or evidence of obstruction, uvula midline. Mucous membranes moist. Neck: Trachea midline, no thyromegaly or masses palpated, and no cervical lymphadenopathy. Supple, full range of motion without nuchal rigidity, or vertebral point tenderness. No Meningismus. Chest/axilla: Normal chest wall appearance and motion. Nontender with no deformity. No lesions are appreciated. Respiratory: Lungs have equal breath sounds bilaterally, clear to auscultation and percussion. No rales, rhonchi or wheezes noted. No increased work of breathing, no retractions or nasal flaring. Back: No spinal tenderness. No costovertebral tenderness. Full range of motion. Male : Normal genitalia with no discharge or lesions. Skin: Warm, dry with normal turgor. Normal color with no rashes, no lesions, and no evidence of cellulitis. 11:03 Cardiovascular: Rate: tachycardic, Rhythm: regular, Pulses: Pulses are 4+ in bilateral radial, brachial, femoral, popliteal, posterior tibial and and dorsalis pedis arteries.. JVD: is not appreciated. Vital Signs: 10:36 BP 145 / 77; Pulse 106; Resp 18; Temp 97.6; Pulse Ox 99% on R/A; Weight 111.13 kg; sg Height 5 ft. 9 in. (175.26 cm); Pain 3/10; 11:51 BP 132 / 95; Pulse 99; Resp 17 S; Pulse Ox 99% on R/A; ca1 10:36 Body Mass Index 36.18 (111.13 kg, 175.26 cm) sg Procedures: 11:06 Suture/Staple removal: Removed 14 paul, from abdomen, site appears well healed, faby dressed with none. Patient tolerated well. MDM: 10:18 Patient medically screened. [facility] 11:04 Data reviewed: vital signs, nurses notes, lab test result(s), Flu: negative. [facility] 04/05 10:49 Order name: Flu; Complete Time: 11:33 ca1 04/05 10:49 Order name: Strep; Complete Time: 11:18 ca1 04/05 11:18 Order name: Throat Culture EDMS Administered Medications: 11:50 Drug: Zithromax 500 mg Route: PO; [facility] 11:50 Follow up: Response: Medication administered at discharge. ca1 Disposition: 04/05/19 11:34 Discharged to Home. Impression: Encounter for removal of sutures, Acute upper respiratory infection, unspecified. - Condition is Stable. - Discharge Instructions: Stitches, [place], or Adhesive Wound Closure, Upper Respiratory Infection, Adult, Cough, Adult. - Prescriptions for Zithromax Z- Manny 250 mg Oral Tablet - take 1 tablet by ORAL route as directed for 5 days Day 1 - take two (2) tablets one time. Day 2, 3, 4 , 5 take one (1) tablet once daily.; 6 tablet. - Medication Reconciliation Form, Thank You Letter, Antibiotic Education, Prescription Opioid Use form. - Follow up: Private Physician; When: 2 - 3 days; Reason: Recheck today's complaints, Continuance of care, Re-evaluation by your physician. Follow up: Jaime Cottrell; When: 2 - 3 days; Reason: Recheck today's complaints, Continuance of care, Re-evaluation by your physician. - Problem is new. - Symptoms have improved. Signatures: Dispatcher [employer] EDMS Jonas Geller RN RN sg Anderson, Corey, MD MD cha Acob, Cheryl, RN RN ca1 Corrections: (The following items were deleted from the chart) 11:51 11:34 04/05/2019 11:34 Discharged to Home. Impression: Encounter for removal of ca1 sutures; Acute upper respiratory infection, unspecified. Condition is Stable. Discharge Instructions: Stitches, Paul, or Adhesive Wound Closure, Upper Respiratory Infection, Adult, Cough, Adult. Prescriptions for Zithromax Z-Manny 250 mg Oral Tablet - take 1 tablet by ORAL route as directed for 5 days Day 1 - take two (2) tablets one time. Day 2, 3, 4 , 5 take one (1) tablet once daily.; 6 tablet. and Forms are Medication Reconciliation Form, Thank You Letter, Antibiotic Education, Prescription Opioid Use. Follow up: Private Physician; When: 2 - 3 days; Reason: Recheck today's complaints, Continuance of care, Re-evaluation by your physician. Follow up: Jaime Cottrell; When: 2 - 3 days; Reason: Recheck today's complaints, Continuance of care, Re-evaluation by your physician. Problem is new. Symptoms have improved. faby
[2019-04-05] MEDS ORDERED: AZITHROMYCIN 250 MG TAB ONE (11:50)
[2019-04-05 11:59] VITALS: TEMP 97.6; O2SAT 99
[2019-04-05 12:00] VITALS: BP 132/95
== END 2019-04-05 11:51 | disposition home or self-care (01) ==
LOC: ER 10:13
DX: Z48.02 Encounter for removal of sutures (principal); J06.9 Acute upper respiratory infection, unspecified; I10 Essential (primary) hypertension; Z72.0 Tobacco use
CPT/HCPCS: 87070; 87081; 87804; 99284

== ENCOUNTER 2021-07-04 01:56 | Emergency (ER) | payer SELFPAY ==
[2021-07-04] MEDS ORDERED: CEFAZOLIN SODIUM 1 GM/VIAL ONE (02:33)
--- NOTE | 2021-07-04 02:35 | ER ---
Nurse's Notes [facility] Name: Adi Raymond II Age: 36 yrs Sex: Male : 1985 Arrival Date: 07/04/2021 Time: 01:59 Bed 13 Private MD: Diagnosis: Cellulitis of right upper limb;Cutaneous abscess of right hand Presentation: 07/04 02:26 Chief complaint: Patient states: "I was chopping wood a couple of days ago and I got a vc1 blister, now my hand is really swollen.". Coronavirus screen: Vaccine status: Patient reports being unvaccinated. At this time, the client does not indicate any symptoms associated with coronavirus-19. Ebola Screen: No symptoms or risks identified at this time. Initial Sepsis Screen:. Onset of symptoms is unknown. 02:26 Method Of Arrival: Ambulatory vc1 02:26 Acuity: SANJEEV 3 vc1 Triage Assessment: 02:29 General: Appears in no apparent distress. uncomfortable, Behavior is calm, cooperative, vc1 appropriate for age. Pain: Complains of pain in right ring finger. Cardiovascular: Patient's skin is warm and dry. Edema is 2+ to right hand. Derm: Redness and swelling right hand. Historical: - Allergies: 02:28 No Known Allergies; vc1 - Home Meds: 02:28 None [Active]; vc1 - PSHx: 02:28 None; vc1 - Immunization history:: Adult Immunizations up to date, Client reports having NOT received the Covid vaccine. - Social history:: Smoking status: Patient denies any tobacco usage or history of. Assessment: 02:55 Reassessment: Patient does not want to stay because of new job, states " i will come [facility] back around 6 am", injection given, monitored 15 mn post injection NARN. Vital Signs: 02:49 BP 135 / 92; Pulse 86; Resp 16; Temp 98.0; Pulse Ox 99% ; ds4 ED Course: 01:59 Patient arrived in ED. kz 02:12 Joey Salas PA is PHCP. jr8 02:12 Aleksandr Reno MD is Attending Physician. jr8 02:28 Halle Vazquez RN is Primary Nurse. ke1 02:28 Triage completed. vc1 02:31 Arm band placed on right wrist. vc1 Administered Medications: 02:39 Drug: Ancef (cefazolin) 1 grams Route: IM; Site: right vastus lateralis; ke1 02:54 Follow up: Response: Medication administered at discharge. ke1 Outcome: 02:34 Discharge ordered by . salma 02:56 Patient left the ED. ke1 Signatures: Joey Salas PA PA jr8 Raad Villareal ds4 Jolanta Watkins RN RN vc1 Halle Vazquez RN RN ke1 Roxie Sutton
--- NOTE | 2021-07-04 02:35 | EDPHYS ---
Physician Documentation [facility] Name: Adi Raymond II Age: 36 yrs Sex: Male : 1985 Arrival Date: 07/04/2021 Time: 01:59 Bed 13 Private MD: ED Physician Aleksandr Reno HPI: 07/04 02:26 This 36 yrs old Male presents to ER via Unassigned with complaints of Hand Swelling - jr8 Right. 02:26 The patient or guardian reports pain, swelling, tenderness. The complaints affect the jr8 right hand diffusely. Onset: The symptoms/episode began/occurred suddenly, 2 day(s) ago. Modifying factors: The symptoms are alleviated by nothing, the symptoms are aggravated by nothing. Associated signs and symptoms: The patient has no apparent associated signs or symptoms. Severity of symptoms: At their worst the symptoms were moderate, in the emergency department the symptoms are unchanged. The patient has not experienced similar symptoms in the past. The patient has not recently seen a physician. This is a 36-year-old male patient who presented to the emergency room with complaints of right hand and finger swelling. Patient stated that he had a blister to the medial aspect of his fourth digit that has now become inflamed and swollen. Patient stated that the swelling has been coming on for the past couple of days and now is going up through the dorsal of his hand. Denies any fever or other problems.. Historical: - Allergies: 02:28 No Known Allergies; vc1 - Home Meds: 02:28 None [Active]; vc1 - PSHx: 02:28 None; vc1 - Immunization history:: Adult Immunizations up to date, Client reports having NOT received the Covid vaccine. - Social history:: Smoking status: Patient denies any tobacco usage or history of. ROS: 02:26 Eyes: Negative for injury, pain, redness, and discharge, ENT: Negative for injury, jr8 pain, and discharge, Neck: Negative for injury, pain, and swelling, Cardiovascular: Negative for chest pain, palpitations, and edema, Respiratory: Negative for shortness of breath, cough, wheezing, and pleuritic chest pain, Abdomen/GI: Negative for abdominal pain, nausea, vomiting, diarrhea, and constipation, Back: Negative for injury and pain, Skin: Negative for injury, rash, and discoloration, Neuro: Negative for headache, weakness, numbness, tingling, and seizure. 02:26 MS/extremity: Positive for erythema, pain, swelling, tenderness, of the right hand. Exam: 02:26 Constitutional: This is a well developed, well nourished patient who is awake, alert, jr8 and in no acute distress. Cardiovascular: Regular rate and rhythm with a normal S1 and S2. No gallops, murmurs, or rubs. Normal PMI, no JVD. No pulse deficits. Respiratory: Lungs have equal breath sounds bilaterally, clear to auscultation and percussion. No rales, rhonchi or wheezes noted. No increased work of breathing, no retractions or nasal flaring. Skin: Warm, dry with normal turgor. Normal color with no rashes and no lesions Neuro: Awake and alert, GCS 15, oriented to person, place, time, and situation. Motor strength 5/5 in all extremities. Sensory grossly intact. 02:26 Musculoskeletal/extremity: Extremities: grossly normal except: noted in the right hand: Patient has moderate swelling to the dorsal right hand without significant erythema. Patient has moderate erythema and swelling circumferentially to the right fourth digit with open ulceration to the medial aspect of that finger. Mild amount of purulent drainage noted, ROM: intact in all extremities, Circulation is intact in all extremities. Sensation intact. No pain with passive range of motion against resistance. Vital Signs: 02:49 BP 135 / 92; Pulse 86; Resp 16; Temp 98.0; Pulse Ox 99% ; ds4 MDM: 02:12 Patient medically screened. jr8 02:26 Data reviewed: vital signs, nurses notes. Data interpreted: Pulse oximetry: on room air jr8 is 100 %. Interpretation: normal. Counseling: I had a detailed discussion with the patient and/or guardian regarding: the historical points, exam findings, and any diagnostic results supporting the discharge/admit diagnosis. ED course: Discussed with patient that he has abscess and cellulitic finger with extension of the dorsal aspect of his hand. Needs to see plastic surgeon for surgical debridement and washout along with IV antibiotics. Recommended that he be admitted and/or transferred depending of our plastic surgeon can see him. Patient stated that he is not prepared to stay the night and would come back first thing later this morning after he finishes his job site. Explained to him that this is a serious infection that can worsen but he still declined to stay at this time. Will give patient intramuscular antibiotics and told him to come back as soon as he could. Patient good with this.. Administered Medications: 02:39 Drug: Ancef (cefazolin) 1 grams Route: IM; Site: right vastus lateralis; ke1 02:54 Follow up: Response: Medication administered at discharge. ke1 Disposition Summary: 07/04/21 02:34 Discharge Ordered Location: Home jr8 Problem: new jr8 Symptoms: are unchanged jr8 Condition: Stable jr8 Diagnosis - Cellulitis of right upper limb jr8 - Cutaneous abscess of right hand jr8 Followup: jr8 - With: Emergency Department - When: Today - Reason: Recheck today's complaints, Continuance of care Discharge Instructions: - Discharge Summary Sheet jr8 - Skin Abscess jr8 - Cellulitis, Adult jr8 - Incision and Drainage jr8 Forms: - Medication Reconciliation Form jr8 - Thank You Letter jr8 - Antibiotic Education jr8 - Prescription Opioid Use jr8 Addendum: 07/05/2021 06:39 Co-signature as Attending Physician, Aleksandr Reno MD I agree with the assessment and c ochoa plan of care. Signatures: Aleksandr Reno MD MD cha Roszak, Josh, PA PA jr8 Jolanta Watkins RN RN vc1 Halle Vazquez RN RN ke1
[2021-07-04] MEDS ORDERED: WATER FOR INJ,STERILE 10 ML ONE (02:36)
[2021-07-04 03:49] VITALS: BP 135/92; TEMP 98; O2SAT 99
== END 2021-07-04 02:56 | disposition home or self-care (01) ==
LOC: ER 01:56
DX: L03.113 Cellulitis of right upper limb (principal); L02.511 Cutaneous abscess of right hand
CPT/HCPCS: 96372; 99282; J0690

== ENCOUNTER 2021-07-04 06:44 | Inpatient (IN) | payer SELFPAY ==
[2021-07-04 07:46] LABS: Absolute Lymphocytes (CBC) 1.5 K/uL (0.7-4.9); Hematocrit 41.7 % (39.6-49.0); Lymphocytes % 12.1 % (15.3-44.8); MPV 7.4 fL (7.6-11.3); RBC Red Blood Cell Count 4.93 M/uL (4.33-5.43)
[2021-07-04 08:00] LABS: Potassium 3.7 mmol/L (3.5-5.1)
[2021-07-04] MEDS ORDERED: CEFAZOLIN SODIUM 1 GM/VIAL ONE (08:24)
[2021-07-04] MEDS ORDERED: NA CHLORIDE 0.9% 1,000 ML ONE ×2 (08:25→14:16)
[2021-07-04] MEDS ORDERED: NA CHLORIDE 0.9% 250 ML ONE (08:25)
--- NOTE | 2021-07-04 08:26 | EDPHYS ---
Physician Documentation [facility] Name: Adi Raymond II Age: 36 yrs Sex: Male : 1985 Arrival Date: 07/04/2021 Time: 07:04 Bed 13 Private MD: ED Physician Brenden Valdez HPI: 07/04 07:17 This 36 yrs old Male presents to ER via Ambulatory with complaints of Finger Injury. kb 08:51 The patient or guardian reports pain, swelling, tenderness. The complaints affect the kb right ring finger. Context: The problem was sustained at home, resulted from an unknown cause. Onset: The symptoms/episode began/occurred 2 day(s) ago. Modifying factors: The symptoms are alleviated by nothing, the symptoms are aggravated by movement. Associated signs and symptoms: The patient has no apparent associated signs or symptoms. Severity of symptoms: At their worst the symptoms were moderate, in the emergency department the symptoms are unchanged. The patient has not experienced similar symptoms in the past. The patient has been recently seen at the [facility] Emergency Department, today. Pt reports swelling, redness and drainage of right ring finger that started 2 days ago. Was seen here during the night and told he needed surgery by a hand specialist, but he wasn't prepared to stay at that time so he left and told them he would come back after work. Historical: - Allergies: 07:10 No Known Allergies; ll1 - PMHx: 07:10 chronic back pain; Hypertension; ll1 - PSHx: 07:10 Cholecystectomy; ear tubes; Adenoid excision; ll1 - Immunization history:: Client reports having NOT received the Covid vaccine. - Social history:: Smoking status: Patient/guardian denies using tobacco, the patient reports quitting approximately 7 years ago. ROS: 07:16 Constitutional: Negative for fever, chills, and weight loss. kb 07:16 MS/extremity: Positive for decreased range of motion, erythema, pain, swelling, tenderness, of the right ring finger. 07:16 Skin: Positive for erythema, swelling, of the right ring finger. 07:16 All other systems are negative. Exam: 07:16 Constitutional: This is a well developed, well nourished patient who is awake, alert, kb and in no acute distress. Head/Face: Normocephalic, atraumatic. ENT: Moist Mucous membranes Respiratory: Respirations even and unlabored. No increased work of breathing. Talking in full sentences Neuro: Awake and alert, GCS 15, oriented to person, place, time, and situation. Moves all extremities. Normal gait. Psych: Awake, alert, with orientation to person, place and time. Behavior, mood, and affect are within normal limits. 07:16 Musculoskeletal/extremity: Extremities: grossly normal except: noted in the right ring finger: decreased ROM, erythema, pain, swelling, tenderness, ROM: limited active range of motion due to pain, limited passive range of motion due to pain, Circulation is intact in all extremities. Sensation intact. 07:16 Skin: cellulitis, that is moderate, on the right ring finger. Vital Signs: 07:08 Weight 106.59 kg; Height 5 ft. 9 in. (175.26 cm); Pain 5/10; ll1 07:08 Pulse 97; Resp 17; Pulse Ox 100% ; ll1 07:33 BP 139 / 94 RA Supine (auto/lg); Pulse 90; Resp 14 S; Temp 98.4(O); Pulse Ox 100% on jg9 R/A; Pain 7/10; 08:00 BP 128 / 93; Pulse 86; Resp 13 S; Pulse Ox 98% on R/A; jg9 09:00 BP 132 / 68; Pulse 80; Resp 12 S; Pulse Ox 99% on R/A; jg9 07:08 Body Mass Index 34.70 (106.59 kg, 175.26 cm) ll1 MDM: 07:05 Patient medically screened. kb 07:16 Data reviewed: vital signs, nurses notes. Data interpreted: Pulse oximetry: on room air kb is 100 %. Interpretation: normal. 08:15 Physician consultation: Wes Go MD was contacted at 08:15, regarding consult, kb patient's condition, and will see patient in OR. 08:23 Counseling: I had a detailed discussion with the patient and/or guardian regarding: the kb historical points, exam findings, and any diagnostic results supporting the discharge/admit diagnosis, lab results, the need for further work-up and treatment in the hospital. 08:23 Physician consultation: Vinay Flores MD was contacted at 08:23, regarding admission, kb to the medical/surgical unit. patient's condition, and will see patient in ED. 07/04 07:12 Order name: CBC with Diff; Complete Time: 07:55 kb 07/04 07:12 Order name: Basic Metabolic Panel; Complete Time: 08:01 kb 07/04 07:12 Order name: Blood Culture Adult (2) kb 07/04 08:10 Order name: COVID-19 SARS RT PCR (Document "Date of Onset" if Symptomatic); Complete bd Time: 10:10 07/04 09:21 Order name: Basic Metabolic Panel EDMS 07/04 09:21 Order name: Basic Metabolic Panel EDMS 07/04 09:18 Order name: CONS Physician Consult EDMS 07/04 09:21 Order name: NPO EDMS 07/04 09:21 Order name: CBC with Automated Diff EDMS 07/04 09:21 Order name: CBC with Automated Diff EDMS 07/04 09:21 Order name: Magnesium EDMS 07/04 09:21 Order name: Magnesium EDMS 07/04 07:12 Order name: IV Start; Complete Time: 07:32 kb Administered Medications: 08:30 Drug: NS 0.9% 1000 ml Route: IV; Rate: 125 ml/hr; Site: left antecubital; jg9 08:32 Drug: Ancef (cefazolin) 1 grams Route: IVPB; Site: left antecubital; jg9 10:30 Follow up: IV Status: Completed infusion; IV Intake: 250ml jg9 Disposition: 07/05 13:46 Co-signature as Attending Physician, Brenden YAP was immediately available on-site ms3 in the Emergency Department for consultation in the care of the patient.. Disposition Summary: 07/04/21 08:25 Hospitalization Ordered Hospitalization Status: Observation kb Provider: Vinay Flores Condition: Stable kb Problem: new kb Symptoms: are unchanged kb Bed/Room Type: Standard kb Location: Telemetry/MedSurg (observation)(07/04/21 16:40) em1 Room Assignment: 210(07/04/21 16:40) em1 Diagnosis - Cutaneous abscess of hand - right ring finger kb - Cellulitis of right finger kb Forms: - Medication Reconciliation Form kb - SBAR form kb Signatures: Dispatcher [employer] EDZenaida Ahuja FNP-C FNP-Ckb Martinez, Eric em1 Kylie Baker, SOFY RN ss Alison Chaparro RN RN ll1 Brenden Valdez DO DO ms3 Zohreh Pacheco RN RN jg9 Corrections: (The following items were deleted from the chart) 07/04 12:26 08:25 Telemetry/MedSurg (observation) kb ss 12: 08:25 kb ss 16:40 12: [facility] ER HOLD ss em1 16:40 12: ERHOLD- ss em1
--- NOTE | 2021-07-04 08:26 | ER ---
Nurse's Notes [facility] Name: Adi Raymond II Age: 36 yrs Sex: Male : 1985 Arrival Date: 07/04/2021 Time: 07:04 Bed 13 Private MD: Diagnosis: Cutaneous abscess of hand-right ring finger;Cellulitis of right finger Presentation: 07/04 07:08 Chief complaint: Patient states: R hand pain and swelling for 10 days getting ll1 progressively worse. 4th digit red, swollen. Coronavirus screen: Vaccine status: Patient reports being unvaccinated. Client denies travel out of the [place] in the last 14 days. At this time, the client does not indicate any symptoms associated with coronavirus-19. Ebola Screen: Patient denies travel to an Ebola-affected area in the 21 days before illness onset. Initial Sepsis Screen: Does the patient meet any 2 criteria? No. Patient's initial sepsis screen is negative. Initial Sepsis Screen: Does the patient meet any 2 criteria? Does the patient have a suspected source of infection? Yes: Skin breakdown/wound. Risk Assessment: Do you want to hurt yourself or someone else? Patient reports no desire to harm self or others. Onset of symptoms was June 24, 2021. 07:08 Method Of Arrival: Ambulatory ll1 07:08 Acuity: SANJEEV 3 ll1 Triage Assessment: 07:14 General: Appears in no apparent distress. Behavior is calm, cooperative. Pain: jg9 Complains of pain in right hand. Musculoskeletal: Swelling present in right hand. Injury Description: Patient was cutting wood when he sustained an injury to his hand and it is isolated to the right ring finger but swelling and redness can be seen in the hand up to the wrist. Historical: - Allergies: 07:10 No Known Allergies; ll1 - PMHx: 07:10 chronic back pain; Hypertension; ll1 - PSHx: 07:10 Cholecystectomy; ear tubes; Adenoid excision; ll1 - Immunization history:: Client reports having NOT received the Covid vaccine. - Social history:: Smoking status: Patient/guardian denies using tobacco, the patient reports quitting approximately 7 years ago. Screenin:14 Abuse screen: Denies threats or abuse. Denies injuries from another. Nutritional jg9 screening: No deficits noted. Tuberculosis screening: No symptoms or risk factors identified. Fall Risk None identified. Assessment: 07:32 Reassessment: No changes from previously documented assessment. Patient and/or family jg9 updated on plan of care and expected duration. Pain level reassessed. 08:15 Reassessment: No changes from previously documented assessment. Patient and/or family jg9 updated on plan of care and expected duration. Pain level reassessed. 09:47 Reassessment: Patient and/or family updated on plan of care and expected duration. Pain jg9 level reassessed. 13:02 Reassessment: Patient returning from surgery, alert, oriented, in no obvious distress, jg9 report received from nurse including post surgical orders by Dr Go. Patient currently eating lunch. Vital Signs: 07:08 Weight 106.59 kg; Height 5 ft. 9 in. (175.26 cm); Pain 5/10; ll1 07:08 Pulse 97; Resp 17; Pulse Ox 100% ; ll1 07:33 BP 139 / 94 RA Supine (auto/lg); Pulse 90; Resp 14 S; Temp 98.4(O); Pulse Ox 100% on jg9 R/A; Pain 7/10; 08:00 BP 128 / 93; Pulse 86; Resp 13 S; Pulse Ox 98% on R/A; jg9 09:00 BP 132 / 68; Pulse 80; Resp 12 S; Pulse Ox 99% on R/A; jg9 07:08 Body Mass Index 34.70 (106.59 kg, 175.26 cm) ll1 ED Course: 07:04 Patient arrived in ED. ag3 07:05 Zenaida Welch FNP-C [facility]. kb 07:05 Brenden Valdez DO is Attending Physician. kb 07:10 Triage completed. ll1 07:10 Arm band placed on Patient placed in an exam room, on a stretcher. ll1 07:11 Zohreh Pacheco RN is Primary Nurse. jg9 07:17 Patient has correct armband on for positive identification. Bed in low position. Call jg9 light in reach. 07:20 Inserted saline lock: 18 gauge in left antecubital area, using aseptic technique. Blood jg9 collected. 08:24 Vinay Flores MD is Hospitalizing Provider. kb 08:33 No apparent distress. Resting quietly. Awaiting lab results, Awaiting surgery. jg9 09:47 Appears to be sleeping. jg9 12:49 No provider procedures requiring assistance completed. jg9 12:50 Patient admitted, IV remains in place. jg9 Administered Medications: 08:30 Drug: NS 0.9% 1000 ml Route: IV; Rate: 125 ml/hr; Site: left antecubital; jg9 08:32 Drug: Ancef (cefazolin) 1 grams Route: IVPB; Site: left antecubital; jg9 10:30 Follow up: IV Status: Completed infusion; IV Intake: 250ml jg9 Intake: 10:30 IV: 250ml; Total: 250ml. jg9 Outcome: 08:25 Decision to Hospitalize by Provider. kb 12:49 Condition: patient in surgery-awaiting his return jg9 12:50 Admitted to ER Hold. Please see [facility] for further documentation. jg9 17:11 Patient left the ED. jg9 Signatures: Zenaida Welch, COIL CONNECTOR REPAIRER-C COIL CONNECTOR REPAIRER-CkYuridia Euceda ag3 Alison Chaparro, RN RN ll1 Zohreh Pacheco, SOFY RN jg9 Corrections: (The following items were deleted from the chart) 07:40 07:33 BP 139 / 94; Pulse 90bpm; Resp 14bpm; Spontaneous; Pulse Ox 100% RA; Pain 7/10; jg9 jg9 17:00 07:14 Injury Description: Patient was cutting wood when he sustained an injury to his jg9 hand and it is isolated to the middle finger but swelling and redness can be seen in the hand up to the wrist. jg9
[2021-07-04] MEDS ORDERED: ONDANSETRON 4 MG/2 ML VIAL IV PRN (09:16)
[2021-07-04] MEDS ORDERED: MORPHINE 2 MG/ML SYR IV PRN (09:19)
--- NOTE | 2021-07-04 09:30 | P.HP ---
Certification for Inpatient Patient admitted to: Inpatient With expected LOS: >2 Midnights Practitioner: I am a practitioner with admitting privileges, knowledge of patient current condition, hospital course, and medical plan of care. Services: Services provided to patient in accordance with Admission requirements found in Title 42 Section 412.3 of the Code of Federal Regulations Patient History Date of Service: 07/04/21 Reason for admission: Finger abscess History of Present Illness: 36yo M, no significant past medical history. Presents to ED due to worsening swelling, redness, and pain of his R hand. He developed a blister ~10 days ago when chopping wood. This became infected and worsened over the last few days. In the ED, patient was noted to have mild leukocytosis, afebrile. Dr. Go was consulted and recommended admission and plan to go to OR today for I&D. Allergies No Known Allergies Allergy (Unverified 04/16/12 11:41) Home Medications: NK [No Home Meds] 07/04/21 - Past Medical/Surgical History Past Medical History: Patient denies medical history -: cholecystectomy -: Tonsillectomy - Family History Family History: Reviewed- Non-Contributory - Social History Smoking Status: Never smoker Alcohol use: No Place of Residence: Home Review of Systems 10-point ROS is otherwise unremarkable Physical Examination - Physical Exam General: Alert, In no apparent distress, Oriented x3 HEENT: Sclerae nonicteric Respiratory: Clear to auscultation bilaterally, Normal air movement Cardiovascular: No edema, Regular rate/rhythm Gastrointestinal: Soft and benign, Non-distended, No tenderness Musculoskeletal: No contractures Integumentary: Tenderness/swelling (of R hand, blister noted on finger, no drainage. unable to make fist due to swelling and pain) Neurological: Normal speech, Normal strength at 5/5 x4 extr, Normal affect - Studies Laboratory Data (last 24 hrs) 07/04/21 07:25: Sodium 137, Potassium 3.7, BUN 22 H, Creatinine 1.13, Glucose 107 H 07/04/21 07:25: WBC 12.4 H, Hgb 14.5, Hct 41.7, Plt Count 327 Assessment and Plan - Advance Directives Does patient have a Living Will: No Does patient have a Durable POA for Healthcare: No Physician Review Additional Text: Problem List R 3rd finger cellulitis/abscess, possible tenosynovitis h/o HTN rocephin & vanc to cover for possible tenosynovitis Dr. Go consulted in ED, planning for OR this afternoon NPO, IVF pain medication as needed f/u blood cultures, ID consulted patient does not appear septic at this time suspect patient will require more than one procedure VTE: SCDs Code: full Dispo: home, likely in ~3-4 days, pending surgical findings/eval Time Spent Managing Pts Care (In Minutes): 60
[2021-07-04] MEDS: NA CHLORIDE 0.9% 1,000 ML IV SCH ×3 (10:00→21:55)
[2021-07-04 10:08] VITALS: BMI 34.7
[2021-07-04] MEDS: VANCOMYCIN 2 GM in NA CHLORIDE 0.9% 500 ML IVPB SCH ×2 (10:42→21:55)
[2021-07-04] MEDS ORDERED: INFLUENZA VACCINE (for 6+ mo) 0.5 ML DOSE IMVAC ONE (11:00)
[2021-07-04] MEDS ORDERED: MIDAZOLAM HCL 2 MG/2 ML INJ ONE (11:10)
[2021-07-04] MEDS ORDERED: propofoL 200 MG/20 ML VIAL IV ONE (11:10)
[2021-07-04] MEDS ORDERED: LIDOCAINE 1% MPF 5 ML VIAL ONE (11:10)
[2021-07-04] MEDS ORDERED: FENTANYL CITR 100 MCG/2 ML ONE (11:10)
[2021-07-04] MEDS ORDERED: ONDANSETRON 4 MG/2 ML VIAL ONE (11:29)
[2021-07-04] MEDS ORDERED: KETOROLAC 30 MG/ML INJ ONE (11:30)
[2021-07-04] MEDS ORDERED: SILVER SULFADIAZINE 1% 25 GM TOP ONE (11:50)
[2021-07-04] MEDS ORDERED: MORPHINE 4 MG/ML SYR IV PRN ×2 (12:05→12:31)
[2021-07-04] MEDS: SILVER SULFADIAZINE 1% 25 GM TOP SCH (14:00)
[2021-07-04] MEDS ORDERED: MORPHINE 4 MG/ML SYR ONE (14:16)
[2021-07-04] MEDS: CEFTRIAXONE 2,000 MG in NA CHLORIDE 0.9% 100 ML IV SCH (20:19)
[2021-07-04] MEDS: CODEINE 30MG/APAP 300MG TAB PO PRN (20:21)
--- NOTE | 2021-07-04 23:16 | HP ---
Date of Admission: 07/04/2021 History Of Present Illness: The patient is a -zfda-ihy male, who approximately has 1-week history of the right down hand having infected off over the middle finger and then the ring finger. He has no medical problems gallbladder. Social History: Does not smoke. Does not drink. Allergies: HE HAS NO ALLERGIES. Medications: Takes no medications. Social History: He has a family history of pancreatic cancer. Physical Examination: GENERAL: On examination, he is an obese male, in no acute distress. EXTREMITIES: The right hand, he has a callus like structure on the middle finger over the ulnar aspe ct and entrance site over the proximal phalanx of the ring finger on the radial side. Assessment: Infection of the hand. Plan: Debridement. APOLINAR Voice ID: [id number]
--- NOTE | 2021-07-04 23:16 | OP ---
Surgeon: Wes Go MD Preoperative Diagnosis: Infection of the right ring finger. Postoperative Diagnosis: Infection of the right ring finger. Procedure Performed: Debridement of skin tissue incision drained abscess and release of the flexor c ompartment . Anesthesia: General. Procedure In Detail: After satisfactory general anesthesia, the hand was prepped with Betadine scrub , Betadine paint, dry sterile drapes, placed in usual manner. The arm was elevated. Tourniquet was inflated to 250. Hand was placed on a roll lock table. The patient had the entry site over the righ t ring finger proximal phalanx radial aspect, was extended in a Umer manner proximally distally ov er the flexor surface of the finger. yellow-green pus consistent with MRSA. The tendon s dana was opened distal A2 lionel. There were no signs of infection within of the yellow- green area. The wound was tracking like a button abscess. The dorsum of hand opened the web between the ring and middle. Fluid was present, but no evelina pus. The 2 wounds communicated with a hemosta t. A small Yuri-Higgins drain was placed between the two. Then, the hand was jet lavage irrigated with 3 L of dilute Betadine solution. Tourniquet was released. Electrocautery was used for hemostas is. Silvadene cream was applied followed by Kerlix. The patient tolerated the procedure well and re turned to recovery room. NELY/BETTE Voice ID: [id number] Report ID: [id number]
[2021-07-05] MEDS: SILVER SULFADIAZINE 1% 25 GM TOP SCH ×2 (01:37→10:09)
[2021-07-05] MEDS: NA CHLORIDE 0.9% 1,000 ML IV SCH (06:00)
[2021-07-05 06:20] LABS: Absolute Lymphocytes (CBC) 1.1 K/uL (0.7-4.9); Hematocrit 37.4 % (39.6-49.0); Lymphocytes % 12.2 % (15.3-44.8); MPV 7.5 fL (7.6-11.3); RBC Red Blood Cell Count 4.33 M/uL (4.33-5.43)
[2021-07-05 06:39] LABS: BUN Blood Urea Nitrogen 17 mg/dL (7-18); Bicarbonate 25 mmol/L (21-32); Glucose Level 105 mg/dL (74-106); Magnesium 2.1 mg/dL (1.8-2.4); Potassium 3.9 mmol/L (3.5-5.1); Sodium Level 140 mmol/L (136-145)
[2021-07-05] MEDS: CODEINE 30MG/APAP 300MG TAB PO PRN (08:05)
[2021-07-05] MEDS: CEFTRIAXONE 2,000 MG in NA CHLORIDE 0.9% 100 ML IV SCH (08:05)
[2021-07-05] MEDS ORDERED: POTASSIUM CL SA 10 MEQ TAB PO ONE (09:00)
[2021-07-05 09:12] VITALS: O2SAT 99
[2021-07-05] MEDS: VANCOMYCIN 2 GM in NA CHLORIDE 0.9% 500 ML IVPB SCH (10:35)
--- NOTE | 2021-07-05 11:40 | P.DS ---
Admission Date: 07/04/21 Discharge Date: 07/05/21 Disposition: ROUTINE DISCHARGE Discharge Condition: GOOD Reason for Admission: Finger abscess Consultations: Dr. Go Procedures: Problem List R 3rd finger cellulitis/abscess, possible tenosynovitis h/o HTN Brief History of Present Illness: 36yo M, no significant past medical history. Presents to ED due to worsening swelling, redness, and pain of his R hand. He developed a blister ~10 days ago when chopping wood. This became infected and worsened over the last few days. In the ED, patient was noted to have mild leukocytosis, afebrile. Dr. Go was consulted, recommended admission and plan for OR Hospital Course: Patient underwent drainage and debridement of abscess of right hand/ ring finger, with release of flexor compartment. Patient was empirically covered with IV antibiotics, remained afebrile and without leukocytosis. Deemed stable for discharge home with wound dressing changes, antibiotics, and pain control per Dr. Go. Prelim gram stain noted coagulase positive gram+ cocci. Discharged with Bactrim for 10 days. Follow up with Dr. Go this coming Friday Vital Signs/Physical Exam: Temp Pulse Resp BP Pulse Ox 98.2 F 78 16 118/77 97 07/05/21 08:00 07/05/21 08:00 07/05/21 08:00 07/05/21 08:00 07/05/21 08:00 Physical Exam: General: AOx3, NAD Pulm: Clear to auscultation bilaterally, Normal air movement Cardiovascular: No edema, Regular rate/rhythm Gastrointestinal: Soft and benign, Non-distended, No tenderness Integumentary: R hand s/p I&D, dressing c/d/i Neurological: Normal speech, Normal strength at 5/5 x4 extr, Normal affect Laboratory Data at Discharge: WBC 9.3 K/uL (4.3-10.9) D 07/05/21 05:58 Hgb 12.9 g/dL (13.6-17.9) L 07/05/21 05:58 Hct 37.4 % (39.6-49.0) L 07/05/21 05:58 Plt Count 283 K/uL (152-406) 07/05/21 05:58 Sodium 140 mmol/L (136-145) 07/05/21 05:58 Potassium 3.9 mmol/L (3.5-5.1) 07/05/21 05:58 BUN 17 mg/dL (7-18) 07/05/21 05:58 Creatinine 0.73 mg/dL (0.55-1.3) 07/05/21 05:58 Glucose 105 mg/dL (74-106) 07/05/21 05:58 Magnesium 2.1 mg/dL (1.8-2.4) 07/05/21 05:58 Home Medications: Codeine/APAP [Tylenol W/Codeine #3 tab] 1 tab PO Q6HP PRN 5 Days #20 tab 07/05/21 Smz./Tmp. [Bactrim Ds 800 MG/160 MG] 1 tab PO BID 10 Days #20 tab 07/05/21 New Medications: Codeine/APAP [Tylenol W/Codeine #3 tab] 1 tab PO Q6HP PRN 5 Days #20 tab PRN Reason: Pain Smz./Tmp. [Bactrim Ds 800 MG/160 MG] 1 tab PO BID 10 Days #20 tab Physician Discharge Instructions: Patient underwent drainage and debridement of abscess of right hand/ ring finger, with release of flexor compartment. Patient was empirically covered with IV antibiotics, remained afebrile and without leukocytosis. Deemed stable for discharge home with wound dressing changes, antibiotics, and pain control per Dr. Go. Prelim gram stain noted coagulase positive gram+ cocci. Discharged with Bactrim for 10 days. Follow up with Dr. Go this coming Friday Diet: Regular Activity: Ad travis Followup: Jose West DO [Primary Care Provider] - Wes Go MD [ACTIVE - CAN ADMIT] - Time spent managing pt's care (in minutes): 45
[2021-07-05 12:19] VITALS: BP 124/69; TEMP 97.5
--- NOTE | 2021-07-05 13:04 | P.CNS ---
Date of Consult: 07/05/21 Chief Complaint: Finger abscess History of Present Illness: The patient is a 36-year-old male with no significant past medical history who presented to the emergency department secondary to right ring finger swelling, erythema, and pain. Patient states that he was splitting wood about a week ago when he noticed a blister on the finger that spontaneously ruptured. States that about a week later he noticed an abrasion to the finger that increasing pain, erythema, and swelling. Patient admitted for concerns of tenosynovitis. He was empirically placed on IV vancomycin and Rocephin. Had surgical I&D of the finger on 07/04. Preliminary wound cultures growing staph coagulase po sitive. Patient denies pain with passive extension, difficulty spontaneously extending the finger, or locking/snapping sensation. Allergies No Known Allergies Allergy (Unverified 04/16/12 11:41) Home Medications: Codeine/APAP [Tylenol W/Codeine #3 tab] 1 tab PO Q6HP PRN 5 Days #20 tab 07/05/21 Smz./Tmp. [Bactrim Ds 800 MG/160 MG] 1 tab PO BID 10 Days #20 tab 07/05/21 - Past Medical/Surgical History -: cholecystectomy -: Tonsillectomy - Social History Alcohol use: No CD- Drugs: No Caffeine use: No Place of Residence: Home Review of Systems 10-point ROS is otherwise unremarkable Physical Examination Temp Pulse Resp BP Pulse Ox 97.5 F 77 16 124/69 99 07/05/21 12:00 07/05/21 12:00 07/05/21 12:00 07/05/21 12:00 07/05/21 12:00 General: In no apparent distress, Obese HEENT: Atraumatic, Normocephalic Neck: Supple, 2+ carotid pulse no bruit Respiratory: Clear to auscultation bilaterally, Normal air movement Cardiovascular: Normal pulses, Regular rate/rhythm Gastrointestinal: Soft and benign, Non-distended Conclusions/Impression: Assessment/plan Tenosynovitis Status post surgical I&D performed on 07/04. Surgery went well with no complications Patient is being sent home on oral Bactrim. Recommend continuing this for 10 to 14 days. Preliminary wound cultures growing staph coagulase positive, continue to follow up on wound cultures to assess Bactrim susceptibility Patient has plans to follow-up outpatient with plastic surgery Plan of care discussed with Dr. Jethro Norwood for consultation
[2021-07-05] MEDS ORDERED: SMZ./TMP. 800/160 MG TABLET PO SCH (21:00)
[2021-07-06] MEDS ORDERED: MORPHINE 2 MG/ML SYR IV PRN (12:07)
== END 2021-07-05 12:49 | disposition home or self-care (01) | DRG 580 ==
LOC: ER 06:44 → ERHOLD 09:24 → 2ND 18:07
PROVIDERS: ADMIT Hospitalist; ATTEND Hospitalist
PROC: 0LN Tendons, Release (ICD-10-PCS; 2021-07-04)
PROC: 0JDJ3ZZ Extraction of Right Hand Subcutaneous Tissue and Fascia, Percutaneous Approach (ICD-10-PCS; principal; 2021-07-04 14:15)
DX: L03.011 Cellulitis of right finger (principal); L02.511 Cutaneous abscess of right hand; M65.9 Synovitis and tenosynovitis, unspecified; B95.62 Methicillin resistant Staphylococcus aureus infection as the cause of diseases classified elsewhere; Z20.822 Contact with and (suspected) exposure to COVID-19
CPT/HCPCS: 36415; 80048; 83735; 85025; 87040; 87070; 87075; 87077; 87186; 87205; 94760; 96365; 96366; 99285; J0690; J0696; J2250; J2405; J2704; J3010; J3370; J7030; J7040; J7050; U0003